=== PATIENT | female | born 1975 | race Caucasian/White ===

== ENCOUNTER 2016-07-25 18:23 | Emergency (ER) | payer MEDICAID, OTHER ==
[2016-07-25] MEDS ORDERED: SODIUM CHLORIDE 0.9% 1,000 ML IV ONE (19:04)
[2016-07-25] MEDS ORDERED: ALBUTEROL NEB 2.5 MG/3 ML INH STA (19:04)
[2016-07-25] MEDS ORDERED: KETOROLAC 60 MG/2 ML VIAL IVP STA (19:04)
[2016-07-25] MEDS ORDERED: KETOROLAC 30 MG/ML VIAL ONE (19:08)
[2016-07-25] MEDS ORDERED: ALBUTEROL NEB 2.5 MG/3 ML INH ONE (19:10)
[2016-07-25] MEDS ORDERED: predniSONE 20 MG TABLET PO STA (20:11)
[2016-07-25] MEDS ORDERED: AMOX/CLAV 875 MG/125 MG TABLET PO STA (20:11)
[2016-07-25] MEDS ORDERED: predniSONE 20 MG TABLET ONE (20:16)
[2016-07-25] MEDS ORDERED: AMOX/CLAV 875 MG/125 MG TABLET PO ONE (20:16)
== END 2016-07-25 20:34 | disposition home or self-care (01) ==
DX: J01.00 Acute maxillary sinusitis, unspecified (principal); R50.9 Fever, unspecified
CPT/HCPCS: 36415; 71020; 80053; 83690; 85025; 87275; 87276; 94640; 96374; 99283; 99284; A9270; J7512; J7613

== ENCOUNTER 2018-11-01 12:14 | Outpatient (CLI) | payer OTHER ==
[2018-11-01 14:58] LABS: FOLLICLE STIMULATING HORMONE 68.84 mIU/mL
[2018-11-01 14:59] LABS: LUTEINIZING HORMONE 24.82 mIU/mL
[2018-11-02 06:52] LABS: ESTRADIOL <15 pg/mL; PROGESTERONE <0.5 ng/mL
== END 2018-11-01 12:15 | disposition home or self-care (01) ==
LOC: LAB 12:14
PROVIDERS: ATTEND Contractor
DX: N76.0 Acute vaginitis (principal); R10.2 Pelvic and perineal pain
CPT/HCPCS: 36415; 81599; 82397; 82670; 83001; 83002; 84144; 84402; 84403

== ENCOUNTER 2019-09-17 07:17 | Outpatient (CLI) | payer OTHER ==
--- NOTE | 2019-09-17 09:57 | MRI Report ---
Reason: LT LEG ACHILLES TENDINITIS Procedure Date: 09/17/2019 Accession Number: [id number] / [id number] Procedure: MRI - Ankle RT W/O CPT Code: Final Report FULL RESULT: EXAM: RIGHT ANKLE/HINDFOOT MRI WITHOUT CONTRAST EXAM DATE: 09/17/2019 08:29 AM. CLINICAL HISTORY: Lateral ankle pain. COMPARISON: None. TECHNIQUE: Multiplanar, multisequence T1-weighted and fluid-sensitive sequences of the ankle/hindfoot without contrast. Other: None. FINDINGS: Bones: No fractures or subluxations. No marrow edema. No bone lesions. Articular Cartilage: Unremarkable. Ligaments: The anterior and posterior tibiofibular, anterior and posterior talofibular, and calcaneofibular ligaments are intact. The deep and superficial deltoid and spring ligaments are intact. Anterior Tendons: The tibialis anterior, extensor hallucis longus, and extensor digitorum longus tendons are unremarkable. Medial Tendons: Mild posterior tibialis tenosynovitis. The flexor digitorum longus and flexor hallucis longus tendons are unremarkable. No tendon tear. Lateral Tendons: There is a longitudinally oriented, partial, split type tear within the peroneus brevis tendon at the level of the lateral malleolus. Mild peroneus longus and brevis tenosynovitis. Achilles Tendon: The Achilles tendon is unremarkable. Musculature: No edema or fatty atrophy. Other: No effusions. There is an approximately 2.4 x 2.4 x 0.6 cm ganglion or synovial cyst dorsal lateral to the talonavicular joint and the sinus tarsi. The contents of the sinus tarsi and tarsal tunnel are unremarkable. No plantar fasciitis. The subcutaneous tissues are unremarkable. IMPRESSION: 1. Partial split type tear within the peroneus brevis tendon at the level of the lateral malleolus. Mild peroneus longus and brevis tenosynovitis. 2. Mild posterior tibialis tenosynovitis. 3. An approximately 2.4 x 2.4 x 0.6 cm ganglion or synovial cyst dorsal lateral to the talonavicular joint and the sinus tarsi. RADIA
--- NOTE | 2019-09-17 11:16 | MRI Report ---
Reason: LT ACHILLES TENDINITIS, RT ANKLE PAIN Procedure Date: 09/17/2019 Accession Number: [id number] / [id number] Procedure: MRI - Ankle LT W/O CPT Code: Final Report FULL RESULT: EXAM: LEFT ANKLE/HINDFOOT MRI WITHOUT CONTRAST EXAM DATE: 09/17/2019 09:16 AM. CLINICAL HISTORY: Left heel pain. COMPARISON: None. TECHNIQUE: Multiplanar, multisequence T1-weighted and fluid-sensitive sequences of the ankle/hindfoot without contrast. Other: None. FINDINGS: Bones and Articular Cartilage: Small Achilles calcaneal enthesophyte. No acute fracture or bone lesions. Articular cartilage is within normal limits. An os trigonum variant is present. Ligaments: The anterior and posterior tibiofibular, anterior and posterior talofibular, and calcaneofibular ligaments are intact. The deep and superficial deltoid and spring ligaments are intact. Anterior Tendons: The tibialis anterior, extensor hallucis longus, and extensor digitorum longus tendons are unremarkable. Medial Tendons: Mild posterior tibialis tenosynovitis. Mild to moderate flexor hallucis longus tenosynovitis. No tendon tear. Lateral Tendons: The peroneus brevis and longus are unremarkable. Achilles Tendon: The Achilles tendon is unremarkable. Musculature: No edema or fatty atrophy. Other: Small tibiotalar joint effusion. There is an approximately 1.8 x 1.4 x 0.6 cm ganglion or synovial cyst dorsolateral to the talonavicular joint and the sinus tarsi. The contents of the sinus tarsi and tarsal tunnel are unremarkable. No plantar fasciitis. The subcutaneous tissues are unremarkable. IMPRESSION: 1. Small Achilles calcaneal enthesophyte. No definite evidence of Achilles tendinosis or tear. 2. Mild posterior tibialis tenosynovitis. Mild to moderate flexor hallucis longus tenosynovitis. 3. Small tibiotalar joint effusion. 4. Ganglion or synovial cyst dorsolateral to the talonavicular joint and the sinus tarsi. RADIA
== END 2019-09-17 07:18 | disposition home or self-care (01) ==
LOC: DI 07:17
PROVIDERS: ATTEND Podiatrist
DX: M77.32 Calcaneal spur, left foot (principal); M65.9 Synovitis and tenosynovitis, unspecified; M25.472 Effusion, left ankle; M25.872 Other specified joint disorders, left ankle and foot; S96.811A Strain of other specified muscles and tendons at ankle and foot level, right foot, initial encounter; M25.871 Other specified joint disorders, right ankle and foot

== ENCOUNTER 2020-10-06 08:00 | Outpatient (CLI) | payer OTHER ==
[2020-10-06 18:23] LABS: BASOPHILS # (AUTO) 0.1 10^3/uL (0.0-0.1); BASOPHILS % (AUTO) 0.5 %; EOSINOPHILS # (AUTO) 0.4 10^3/uL (0.0-0.7); EOSINOPHILS % (AUTO) 4.4 %; HCT - HEMATOCRIT 42.8 % (37.0-47.0); HGB - HEMOGLOBIN 13.8 g/dL (12.0-16.0); LYMPHOCYTES # (AUTO) 2.9 10^3/uL (1.5-3.5); LYMPHOCYTES % (AUTO) 29.2 %; MEAN CORPUSCULAR HEMOGLOBIN 31.1 pg (27.0-31.0); MEAN CORPUSCULAR HGB CONC 32.2 g/dL (32.0-36.0); MEAN CORPUSCULAR VOLUME 96.4 fL (81.0-99.0); MEAN PLATELET VOLUME 10.4 fL (7.9-10.8); MONOCYTES # (AUTO) 0.6 10^3/uL (0.0-1.0); MONOCYTES % (AUTO) 6.1 %; NEUTROPHILS # (AUTO) 5.9 10^3/uL (1.5-6.6); NEUTROPHILS % (AUTO) 59.6 %; PLT - PLATELET COUNT 305 10^3/uL (130-450); RED BLOOD COUNT 4.44 10^6/uL (4.20-5.40); RED CELL DISTRIBUTION WIDTH 12.7 % (12.0-15.0); WHITE BLOOD COUNT 9.9 x10^3/uL (4.8-10.8)
[2020-10-06 18:46] LABS: ALBUMIN 4.8 g/dL (3.2-5.5); ALBUMIN/GLOBULIN RATIO 1.5 (1.0-2.2); BILIRUBIN,TOTAL 0.7 mg/dL (0.2-1.0); CALCIUM 9.7 mg/dL (8.5-10.3); CREATININE 0.8 mg/dL (0.4-1.0); POTASSIUM 3.8 mmol/L (3.5-5.0); TOTAL PROTEIN 8.1 g/dL (6.7-8.2)
== END 2020-10-06 23:59 | disposition home or self-care (01) ==
LOC: LAB.N 08:00
PROVIDERS: ATTEND Physician Assistant Medical
DX: R10.31 Right lower quadrant pain (principal)
CPT/HCPCS: 36415; 80053; 83690; 85025

== ENCOUNTER 2020-10-06 08:00 | Outpatient (CLI) | payer OTHER ==
--- NOTE | 2020-10-06 15:48 | XRAY Report ---
PROCEDURE: Abdomen 1 View X-Ray INDICATIONS: RLQ PAIN TECHNIQUE: 1 view of the abdomen were acquired. COMPARISON: None FINDINGS: Surgical changes and devices: None. Bowel: No pneumoperitoneum. The bowel gas pattern is normal. Soft tissues: No masses; visualized solid organ contours appear normal in size. No suspicious abdom inal calcifications. Bones: No suspicious bony abnormalities. IMPRESSION: No acute process. Reviewed by: Aditi Andersen MD on 10/06/2020 3:46 PM PDT Approved by: Aditi Andersen MD on 10/06/2020 3:46 PM PDT Station ID: [id number]
== END 2020-10-06 23:59 | disposition home or self-care (01) ==
LOC: DI.N 08:00
PROVIDERS: ATTEND Physician Assistant Medical
DX: R10.31 Right lower quadrant pain (principal)
CPT/HCPCS: 36415; 80053; 83690; 85025

== ENCOUNTER 2020-10-16 06:00 | Outpatient (CLI) | payer OTHER | END 2020-10-16 23:59 | disposition home or self-care (01) | LOC: LAB.R 06:00 | PROVIDERS: ATTEND Physician Assistant | DX: R19.7 Diarrhea, unspecified (principal) | CPT/HCPCS: 81599; 87045; 87046; 87427 ==

== ENCOUNTER 2021-09-16 08:00 | Outpatient (CLI) | payer OTHER ==
[2021-09-16 18:41] LABS: BASOPHILS % (AUTO) 0.4 %; EOSINOPHILS # (AUTO) 0.5 10^3/uL (0.0-0.7); EOSINOPHILS % (AUTO) 5.2 %; HCT - HEMATOCRIT 40.5 % (37.0-47.0); HGB - HEMOGLOBIN 13.4 g/dL (12.0-16.0); LYMPHOCYTES # (AUTO) 3.7 10^3/uL (1.5-3.5); LYMPHOCYTES % (AUTO) 38.8 %; MEAN CORPUSCULAR HEMOGLOBIN 30.9 pg (27.0-31.0); MEAN CORPUSCULAR HGB CONC 33.1 g/dL (32.0-36.0); MEAN CORPUSCULAR VOLUME 93.3 fL (81.0-99.0); MEAN PLATELET VOLUME 10.4 fL (7.9-10.8); MONOCYTES # (AUTO) 0.3 10^3/uL (0.0-1.0); MONOCYTES % (AUTO) 3.6 %; NEUTROPHILS % (AUTO) 51.9 %; PLT - PLATELET COUNT 290 10^3/uL (130-450); RED BLOOD COUNT 4.34 10^6/uL (4.20-5.40); RED CELL DISTRIBUTION WIDTH 12.7 % (12.0-15.0); WHITE BLOOD COUNT 9.6 x10^3/uL (4.8-10.8)
== END 2021-09-16 23:59 | disposition home or self-care (01) ==
LOC: LAB.N 08:00
PROVIDERS: ATTEND Physician Assistant Medical
DX: R23.3 Spontaneous ecchymoses (principal)
CPT/HCPCS: 36415; 85025

== ENCOUNTER 2022-04-21 13:14 | Outpatient (CLI) | payer OTHER ==
--- NOTE | 2022-04-22 10:22 | XRAY Report ---
PROCEDURE: Hand 3 View RT INDICATIONS: JOINT PAIN IN RIGHT HAND TECHNIQUE: 3 views of the hand acquired. COMPARISON: None. FINDINGS: Bones: No acute fractures or dislocations. No suspicious bony lesions. Soft tissues: No suspicious soft tissue calcifications. IMPRESSION: No acute osseous abnormality. If symptoms persist or there is continued clinical concern, further sharon luation with MRI or CT may be helpful. Reviewed by: Ray Fisher MD on 04/22/2022 10:21 AM PDT Approved by: Ray Fisher MD on 04/22/2022 10:21 AM PDT Station ID: [id number]
== END 2022-04-21 13:15 | disposition home or self-care (01) ==
LOC: DI 13:14
PROVIDERS: ATTEND Registered Nurse
DX: M25.541 Pain in joints of right hand (principal)

== ENCOUNTER 2022-06-30 08:00 | Outpatient (CLI) | payer OTHER ==
[2022-06-30 20:50] LABS: BASOPHILS # (AUTO) 0.1 10^3/uL (0.0-0.1); BASOPHILS % (AUTO) 0.6 %; EOSINOPHILS # (AUTO) 0.5 10^3/uL (0.0-0.7); EOSINOPHILS % (AUTO) 5.8 %; HCT - HEMATOCRIT 40.6 % (37.0-47.0); HGB - HEMOGLOBIN 13.1 g/dL (12.0-16.0); LYMPHOCYTES # (AUTO) 3.8 10^3/uL (1.5-3.5); LYMPHOCYTES % (AUTO) 49.1 %; MEAN CORPUSCULAR HEMOGLOBIN 30.7 pg (27.0-31.0); MEAN CORPUSCULAR HGB CONC 32.3 g/dL (32.0-36.0); MEAN CORPUSCULAR VOLUME 95.1 fL (81.0-99.0); MEAN PLATELET VOLUME 10.3 fL (7.9-10.8); MONOCYTES # (AUTO) 0.4 10^3/uL (0.0-1.0); NEUTROPHILS % (AUTO) 39.2 %; PLT - PLATELET COUNT 294 10^3/uL (130-450); RED BLOOD COUNT 4.27 10^6/uL (4.20-5.40); RED CELL DISTRIBUTION WIDTH 12.6 % (12.0-15.0); WHITE BLOOD COUNT 7.8 x10^3/uL (4.8-10.8)
[2022-06-30 20:55] LABS: ALBUMIN 4.4 g/dL (3.2-5.5); ALBUMIN/GLOBULIN RATIO 1.3 (1.0-2.2); BILIRUBIN,TOTAL 0.4 mg/dL (0.2-1.0); CALCIUM 9.5 mg/dL (8.5-10.3); CREATININE 0.9 mg/dL (0.4-1.0); POTASSIUM 3.8 mmol/L (3.5-5.0); TOTAL PROTEIN 7.7 g/dL (6.7-8.2)
[2022-06-30 21:17] LABS: THYROID STIMULATING HORMONE 2.77 uIU/mL (0.34-5.60)
== END 2022-06-30 23:59 | disposition home or self-care (01) ==
LOC: LAB.N 08:00
PROVIDERS: ATTEND Registered Nurse
DX: R07.89 Other chest pain (principal)
CPT/HCPCS: 36415; 80053; 84443; 84484; 85025

== ENCOUNTER 2022-10-29 16:15 | Outpatient (CLI) | payer OTHER ==
[2022-10-29 20:29] LABS: BASOPHILS % (AUTO) 0.5 %; EOSINOPHILS # (AUTO) 0.4 10^3/uL (0.0-0.7); EOSINOPHILS % (AUTO) 5.1 %; HCT - HEMATOCRIT 41.3 % (37.0-47.0); HGB - HEMOGLOBIN 13.4 g/dL (12.0-16.0); LYMPHOCYTES # (AUTO) 2.9 10^3/uL (1.5-3.5); LYMPHOCYTES % (AUTO) 35.9 %; MEAN CORPUSCULAR HEMOGLOBIN 31.4 pg (27.0-31.0); MEAN CORPUSCULAR HGB CONC 32.4 g/dL (32.0-36.0); MEAN CORPUSCULAR VOLUME 96.7 fL (81.0-99.0); MEAN PLATELET VOLUME 10.7 fL (7.9-10.8); MONOCYTES # (AUTO) 0.3 10^3/uL (0.0-1.0); MONOCYTES % (AUTO) 4.2 %; NEUTROPHILS # (AUTO) 4.4 10^3/uL (1.5-6.6); NEUTROPHILS % (AUTO) 54.2 %; PLT - PLATELET COUNT 280 10^3/uL (130-450); RED BLOOD COUNT 4.27 10^6/uL (4.20-5.40)
[2022-10-29 20:36] LABS: ALBUMIN 4.4 g/dL (3.2-5.5); ALBUMIN/GLOBULIN RATIO 1.4 (1.0-2.2); BILIRUBIN,TOTAL 0.4 mg/dL (0.2-1.0); CALCIUM 9.8 mg/dL (8.5-10.3); CREATININE 0.8 mg/dL (0.4-1.0); MAGNESIUM 2.2 mg/dL (1.7-2.8); POTASSIUM 3.7 mmol/L (3.5-5.0); TOTAL PROTEIN 7.5 g/dL (6.7-8.2)
[2022-10-29 20:54] LABS: THYROID STIMULATING HORMONE 1.35 uIU/mL (0.34-5.60)
[2022-10-29 20:56] LABS: FREE T3 3.24 pg/mL (2.5-3.9); FREE T4 (FREE THYROXINE) 0.76 ng/dL (0.58-1.64)
== END 2022-10-29 16:30 | disposition home or self-care (01) ==
LOC: LAB.N 16:15
PROVIDERS: ATTEND Registered Nurse
DX: I10 Essential (primary) hypertension (principal); R55 Syncope and collapse; R07.89 Other chest pain
CPT/HCPCS: 36415; 80053; 83735; 84439; 84443; 84481; 84484; 85025

== ENCOUNTER 2022-10-29 17:59 | Outpatient (CLI) | payer OTHER ==
--- NOTE | 2022-10-29 18:38 | XRAY Report ---
PROCEDURE: Chest 2 View X-Ray INDICATIONS: NEAR SYNCOPE,CHEST PRESSURE,ESSENTIAL HYPERTENSION TECHNIQUE: 2 views of the chest were acquired. COMPARISON: Chest x-ray, 07/25/1969. FINDINGS: Surgical changes and devices: None. Lungs and pleura: Biapical opacities are unchanged, compatible with apical scars. No pleural effusion s or pneumothorax. Mediastinum: Mediastinal contours appear normal. Heart size is normal. Bones and chest wall: No suspicious bony lesions. Overlying soft tissues appear unremarkable. IMPRESSION: No acute cardiopulmonary disease. Reviewed by: Khanh Puente MD on 10/29/2022 6:37 PM PDT Approved by: Khanh Puente MD on 10/29/2022 6:37 PM PDT Station ID: [id number]
== END 2022-10-29 18:00 | disposition home or self-care (01) ==
LOC: DI 17:59
PROVIDERS: ATTEND Registered Nurse
DX: R55 Syncope and collapse (principal); R07.89 Other chest pain; I10 Essential (primary) hypertension